=== PATIENT | male | born 1975 | race Caucasian/White ===

== ENCOUNTER 2017-02-24 18:19 | Observation (INO) ==
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
[2017-02-24] MEDS ORDERED: Dexamethasone 4 MG/ML VIAL IVP ONE (19:22)
[2017-02-24 19:24] LABS: Basophils % 0.8 %; Eosinophils # 0.1 K/mcL (0.0-0.6); Eosinophils % 1.4 %; Hematocrit 45.1 % (37.5-50.1); Hemoglobin 15.5 g/dL (12.9-16.9); Immature Granulocytes % 0.2 % (0-4); Lymphocytes # 1.6 K/mcL (0.6-4.6); Lymphocytes % 32.1 %; Mean Corpuscular HGB Conc 34.4 g/dL (31.6-35.5); Mean Corpuscular Hemoglobin 30.2 pg (28.0-33.3); Mean Corpuscular Volume 87.7 fL (83.0-100.0); Mean Platelet Volume 9.4 fL (9.4-12.4); Monocytes # 0.7 K/mcL (0.0-1.3); Monocytes % 13.5 %; Neutrophils # 2.7 K/mcL (1.6-8.9); Platelet Count 171 K/mcL (140-400); Red Blood Count 5.14 M/mcL (4.19-5.50); Red Cell Distribution Width 12.5 % (11.5-14.5)
[2017-02-24] MEDS ORDERED: Tetracaine 0.5% OPTH 80 DROP/4 ML BOTTLE RIGHT EYE ONE (19:27)
[2017-02-24] MEDS ORDERED: Fluorescein Sodium STRIP OP ONE (19:27)
[2017-02-24 19:32] LABS: INR 1.1; Prothrombin Time 12.3 Seconds (9.4-12.1)
[2017-02-24 19:35] LABS: Activated Partial Thrombo Time 31.7 Seconds (26.0-36.0)
[2017-02-24 19:37] LABS: BUN/Creatinine Ratio 11 (6-26); Blood Urea Nitrogen 13 mg/dL (8-26); Calcium 9.6 mg/dL (8.6-10.8); Carbon Dioxide 25 mEq/L (19-29); Chloride 103 mEq/L (98-109); Glucose 97 mg/dL (70-99); Osmolality,Calculated 286 (280-300); Potassium 4.3 mEq/L (3.5-4.5); Sodium 138 mEq/L (136-145); eGFR For African Americans > 60 (> 60); eGFR For Non-African Americans > 60 (> 60)
[2017-02-24] MEDS ORDERED: carBAMazepine 200 MG TABLET PO ONE (21:00)
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
[2017-02-24] MEDS ORDERED: *HR* HYDROmorphone (PF) 1 MG/ML SYRINGE IVP PRN (22:06)
[2017-02-24] MEDS ORDERED: Ondansetron 4 MG/2 ML VIAL IVP PRN (22:06)
[2017-02-24] MEDS ORDERED: Naloxone 0.4 MG/ML INJ IVP PRN (22:06)
[2017-02-24] MEDS ORDERED: Aspirin 81 MG TAB.CHEW PO STA (23:31)
[2017-02-24] MEDS: Famotidine 20 MG/2 ML VIAL IVP SCH (23:45)
[2017-02-25 01:12] LABS: Hematocrit 42.9 % (37.5-50.1); Hemoglobin 15.3 g/dL (12.9-16.9); Mean Corpuscular HGB Conc 35.7 g/dL (31.6-35.5); Mean Corpuscular Hemoglobin 30.7 pg (28.0-33.3); Mean Platelet Volume 9.4 fL (9.4-12.4); Platelet Count 162 K/mcL (140-400); Red Blood Count 4.99 M/mcL (4.19-5.50); Red Cell Distribution Width 12.7 % (11.5-14.5)
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
[2017-02-25 01:28] LABS: BUN/Creatinine Ratio 10 (6-26); Blood Urea Nitrogen 12 mg/dL (8-26); Calcium 9.4 mg/dL (8.6-10.8); Carbon Dioxide 22 mEq/L (19-29); Chloride 103 mEq/L (98-109); Glucose 229 mg/dL (70-99); Osmolality,Calculated 289 (280-300); Potassium 3.9 mEq/L (3.5-4.5); Sodium 136 mEq/L (136-145); eGFR For African Americans > 60 (> 60); eGFR For Non-African Americans > 60 (> 60)
[2017-02-25 07:52] LABS: Thyroid Stimulating Hormone 0.669 mcIU/mL (0.350-4.840)
[2017-02-25] MEDS: Acetaminophen 325 MG TABLET PO PRN ×2 (08:39→15:00)
[2017-02-25] MEDS: Aspirin 81 MG TAB.CHEW PO SCH (08:39)
[2017-02-25 08:48] LABS: Chol/HDL Ratio 5.7 (0-4.9)
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
--- NOTE | 2017-02-25 15:36 | Electrocardiograph Report ---
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
[2017-02-25] MEDS: predniSONE 20 MG TABLET PO SCH (17:29)
[2017-02-25] MEDS: Famotidine 20 MG/2 ML VIAL IVP SCH (17:29)
[2017-02-26 07:34] VITALS: BP 126/72
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
[2017-02-26] MEDS ORDERED: Famotidine 20 MG TABLET PO SCH (09:00)
[2017-02-26] MEDS: Aspirin 81 MG TAB.CHEW PO SCH (10:19)
[2017-02-26] MEDS: predniSONE 20 MG TABLET PO SCH (10:19)
[2017-02-27 09:47] LABS: Hemoglobin A1C 5.2 %
== END 2017-02-26 11:00 | disposition home or self-care (01) ==
LOC: EMEROO 18:19 → 3BNU 18:19 → SUATTDRO 21:27 → 3BNU 22:20
PROVIDERS: ADMIT Hospitalist; ATTEND Family Medicine